=== PATIENT | female | born 1985 | race Caucasian/White ===

== ENCOUNTER 2022-07-30 08:05 | Observation (INO) ==
[2022-07-31] MEDS ORDERED: ONDANSETRON INJ 2 MG/ML 2 ML VIAL IV PRN (11:29)
[2022-07-31] MEDS ORDERED: ACETAMINOPHEN 325 MG TAB PO PRN (11:29)
[2022-07-31] MEDS ORDERED: Patient's HEIGHT &/or WEIGHT Needed SCH (11:45)
[2022-07-31] MEDS ORDERED: PIPERACILLIN/TAZOBACTAM 3.375 GM in DEXTROSE 5% 100 ML IV ONE (12:00)
--- NOTE | 2022-07-31 12:16 | Surgery Consultation ---
This case was discussed with the surgical PA Date of Consultation July 31, 2022 Assessment & Plan (1) Acute cholecystitis: This is a 36y F with PMH of IV drug abuse, methadone user (last usage 1 wk ago), who presented to [facility] today with complaints of constipation over the last several weeks. This is associated with some mild nausea over the last few days. Apparently she had a CT a/p that revealed evidence of acute cholecystitis with mild intrahepatic duct dilation. She also had findings of elevated LFTs with Tb 3.3. WBC 10. She was subsequently transferred here for further evaluation and GI workup. Lab work is currently being drawn at the bedside and radiology working on uploading CT scan imaging in our system. On exam patient's abdomen is soft, but tender in the epigastric/ruq regions. Will await blood work here in addition to GI's recommendations regarding further imaging vs taking the patient for an ERCP. Keep NPO with IVF for now. We will follow closely for possible surgical planning in the near future pending ongoing workup and GI recs. History of Present Illness Attending Physician: Cam Alberts MD History of Present Illness This is a 36y F with PMH of IV drug abuse, methadone user (last usage 1 wk ago), who presented to [facility] today with complaints of constipation. Patient cannot recall her last bowel movement. She has tried laxatives without relief. She also endorses some mild nausea over the last few days. Apparently she had a CT a/p that revealed evidence of acute cholecystitis with mild intrahepatic duct dilation. She also had findings of elevated LFTs with Tb 3.3. WBC 10. She denies any fevers/chills, CP/SOB, abdominal pain at rest, alcohol history, no prior abdominal surgeries. She does not endorse issues with eating, in particular no issues with fatty/greasy foods. Allergies Allergy/AdvReac Type Severity Reaction Status Date / Time ibuprofen Allergy Mild Rash Verified 07/31/22 11:38 Patient History Social History Smoking Status: Current every day smoker Hx Alcohol Use: No Hx Substance Use: Yes Last Used Substance: Days (ago) Last Used Substance Other:: 07/24/22 Preferred Language: Malay Scratch Brusher Required: No Beliefs That Will Affect Care: None Current Living Situation: Parent Other Information That Helps Us Care for You: No Feels Safe at Home: Yes Safety Concerns: Feels Safe At This Time Assistive Devices: Denture - Upper Assistive Devices Comment: doesnt have dentures with her Review of Systems Constitutional: no fever and no chills Respiratory: no dyspnea Cardiovascular: no chest pain Gastrointestinal: + abdominal pain (upon palpation, but not at rest) and + nausea; no bloating and no vomiting Genitourinary: dark colored urine Physical Exam Physical Exam: awake/alert, no distress Constitutional: no acute distress Respiratory: normal respiratory effort Cardiovascular: Rate/Rhythm: regular rate Gastrointestinal (Abdomen): Inspection/Auscultation: abdomen not distended Percussion/Palpation: + abdomen tender (ttp in the epigastric/RUQ region) and abdomen soft Results & Data Vital Signs (Past 12 Hours) Vital Signs Temp Pulse Resp BP Pulse Ox O2 Del Method 07/31/22 11:25 36.7 C 78 16 94/63 L 99 Room Air PG Care Time/CCT Total # of Minutes Spent Total Time Spent with Patient: Total time spent is greater than 50% in coordination of care (as documented) at patient's floor/unit and/or counseling patient: Coding Level of Care Code 99393 IN/OBS CONSULT LVL 3,45M Diagnoses Acute cholecystitis K81.0
[2022-07-31 12:27] LABS: Hematocrit (blood only) 38.3 % (37.0-47.0); Hemoglobin 13.1 g/dl (12.0-16.0); Mean Corpuscular Hgb Conc 34.2 g/dL (32.0-36.0); Mean Corpuscular Volume 84.9 fL (80.0-100.0); Mean Platelet Volume 11.1 fL (9.4-12.4); Platelet Count 108 K/uL (130-400); RDW Coefficient of Variation 12.8 % (11.5-14.5); RDW Standard Deviation 39.3 fL (36.4-46.3); Red Blood Count 4.51 M/uL (4.20-5.40); White Blood Count 7.97 K/ul (4.8-10.8)
--- NOTE | 2022-07-31 12:30 | History & Physical Report ---
Date of Service July 31, 2022 Assessment & Plan (1) Acute cholecystitis: (2) Transaminitis: Plan: Admit to med/surg Patient transferred from [facility] for evaluation of transaminitis and CT ABD/pelvis showing acute cholecystitis and ductal dilation. Afebrile, WBC 7.9K. Repeat LFTs pending. Received ceftriaxone and Flagyl at [facility], will start IV Zosyn Follow blood cultures Acute hepatitis and HIV panels sent at [facility] IVF, pain and nausea control General surgery consult, case discussed with Anne-Marie Vargas PA-C GI consult, case discussed with LAINE Rader (3) IV drug user: Plan: Patient reports using IV methamphetamine over the past 18 months, last use 1 week ago Noted UDS from [facility] also positive for marijuana Patient denies alcohol use (4) Seizure disorder: Plan: Not on meds per patient, however prior fill history shows that patient most recently was on Keppra 500 mg twice daily (5) Bipolar disorder: Plan: Not on meds per patient, however prior fill history shows that patient most recently was on -- prazosin 3 mg HS, naltrexone 25mg daily, lithium 300 mg BID, aripiprazole 20 mg daily DVT PROPHYLAXIS SCDs I spent a total of 75 minutes coordinating, documenting, and providing care for this patient excluding time spent in the performance of separately billed services. This included personally reviewing all current laboratories and imaging studies, medication reconciliation, outpatient chart review, and discussion with specialists. Admission and Anticipated Discharge Date Admission Date: July 31, 2022 History of Present Illness Chief Complaint: Consitpation Primary Care Provider: NO PCP 36 year old female with PMH bipolar disorder, seizure disorder, migraines, hx partial thyroidectomy, and does not take any medications, IV drug abuse using meth one week ago, and other problems listed below who presents as a transfer from [facility]. History obtained from the patient by Dr. East and my personal review of records from [facility] ED. Patient presented there yesterday with complaints of constipation for the past several weeks and some nausea over the past few days. Work up there showed transaminitis and CT abd/pelvis with acute cholecystitis and CBD dilation. Patient was transferred to [facility] for GI and general surgery evaluations. Patient was seen in room 306. She reports being hungry. Has abdominal pain only with palpation. Denies chest pain and shortness of breath. No lightheadedness or dizziness. Denies fevers and chills. No urinary symptoms. Review of labs from [facility] show K+ 3.0, WBC 8K, total bili 3.3, AST 1883, ALT 2938, alk phos 600. Allergies Allergy/AdvReac Type Severity Reaction Status Date / Time ibuprofen Allergy Mild Rash Verified 07/31/22 11:38 Home Medications Medication Instructions Recorded Confirmed Type No Known Home Medications 07/31/22 07/31/22 History Past Med/Surg History Medical History Bipolar disorder IV drug user Migraines Seizure disorder not on meds Surgical History History of partial thyroidectomy not on replacement therapy Family History Other Adopted Social History Smoking Status: Current every day smoker Hx Alcohol Use: No Hx Substance Use: Yes Last Used Substance: Days (ago) Last Used Substance Other:: 07/24/22 Preferred Language: Hungarian Drilling Manager Required: No Beliefs That Will Affect Care: None Current Living Situation: Parent Other Information That Helps Us Care for You: No Feels Safe at Home: Yes Safety Concerns: Feels Safe At This Time Assistive Devices: Denture - Upper Assistive Devices Comment: doesnt have dentures with her Review of Systems Review of Systems: ROS per HPI, all other systems reviewed and negative Physical Exam Physical Exam: please refer to Dr. East's addendum for physical exam Results & Data Results & Data Vital Signs (Past 12 Hours) Vital Signs Temp Pulse Resp BP Pulse Ox O2 Del Method 07/31/22 11:25 36.7 C 78 16 94/63 L 99 Room Air Laboratory Results Short CBC 07/31/22 Range/Units 12:01 WBC 7.97 (4.8-10.8) K/ul Hgb 13.1 (12.0-16.0) g/dl Hct 38.3 (37.0-47.0) % Plt Count 108 L (130-400) K/uL BMP 07/31/22 12:01 Sodium 138 Potassium 3.5 Chloride 109 H Carbon Dioxide 24 BUN 8 Creatinine 0.62 Glucose 76 Calcium 7.7 L Liver Function 07/31/22 Range/Units 12:01 Total Bilirubin 3.3 H (0.2-1.0) mg/dl Alkaline Phosphatase 459 H (34-104) U/L Albumin 3.2 L (3.4-5.0) gm/dl Code Status & VTE Plan VTE Prophylaxis Plan VTE Prophylaxis will be ordered: Yes Supervising Physician Co-Signing Physician Notes Patient is a 36-year-old female with history of bipolar disorder, schizophrenia, migraine, IV drug abuse, insomnia and other medical problems presents from [facility] for evaluation of abdominal pain thought to be secondary to acute cholecystitis, constipation. Patient states having generalized abdominal pain, radiating to back, associated with constipation over the past few days. CT abdomen done at [facility] suggestive of acute cholecystitis. She reports nausea but no vomiting. Denies any chest pain, dyspnea, fever, chills, dizziness. LFTs were elevated on review of blood work from [facility]. Please review HPI for complete details of presentation. Currently patient not taking any medications. Blood work suggestive of thrombocytopenia of 108K, chloride 109, magnesium 1.6, total bilirubin 2.3, AST 1273, ALT 2093, alkaline phosphatase 459, corrected calcium for albumin within normal limits, normal lipase and lactate levels. COVID screen is negative. MRCP, blood cultures currently pending. EKG showed normal sinus rhythm, nonspecific ST-T wave changes, QTc 442. Physical Exam: Vitals signs as noted above General Appearance:Moderately built and nourished, no apparent distress Head: normocephalic, Atraumatic Eyes: normal inspection, EOMI Neck: supple, Trachea midline Respiratory/Chest: Normal breath sounds, CTA, No accessory muscle use Cardiovascular: S1, S2, No murmur Abdomen/GI:Soft, generalized abdominal tenderness, voluntary guarding, decreased Bowel sounds Extremities/Musculoskeletal:normal inspection, no edema Neurologic/Psych:AAOX3, grossly no focal neurological deficits Skin: normal color, warm Acute cholecystitis No signs of sepsis Rule out cholangitis MRCP pending Avoid hepatotoxic agents as able Obtain records from [facility] for hepatitis, HIV panel as able Agree with IV fluids, pain control, IV Zosyn, bowel rest GI and surgery consulted Further management based on MRCP results. Constipation Bowel regimen as able I personally reviewed the record. Patient is interviewed and examined at bedside. Patient's care is coordinated with Steph Rome NAVAL INSPECTOR. Please refer to the documentation above for details of patient's presentation and for discussion of other issues.
[2022-07-31 12:37] LABS: BUN Creatinine Ratio 12.9 (10-20); Calcium 7.7 mg/dl (8.5-10.1); Creatinine Clr Calc Pharmacy 127.1 ml/min; Est GFR (African American) 135.4 ml/min; Est GFR (Non-African American) 116.8 ml/min; Potassium 3.5 mmol/L (3.5-5.1)
[2022-07-31 12:38] LABS: Albumin Globulin Ratio 1.3 (0.9-2); Albumin Level 3.2 gm/dl (3.4-5.0); Bilirubin,Total 3.3 mg/dl (0.2-1.0); Globulin 2.4 gm/dl (2.5-4.0); Magnesium 1.6 mg/dl (1.7-2.4); Total Protein 5.6 gm/dl (6.0-8.3)
[2022-07-31] MEDS ORDERED: MAGNESIUM SULFATE / D5W 1 GM/100 ML BAG IV ONE (12:47)
[2022-07-31] MEDS ORDERED: bisacodyL 10 MG SUPP PR PRN (12:50)
[2022-07-31] MEDS ORDERED: NSS + 20MEQ KCL 20 MEQ/1,000 ML BAG IV SCH (13:00)
[2022-07-31] MEDS ORDERED: MoRPHine SULFATE 4 MG/ML 1 ML CARP\\VIAL IV PRN (13:04)
[2022-07-31 13:07] LABS: Basophils # (auto) 0.05 K/uL (0-0.2); Basophils % (auto) 0.6 %; Eosinophils # (auto) 0.03 K/uL (0-0.50); Eosinophils % (auto) 0.4 %; Immature Granulocytes # (auto) 0.02 K/uL (0.01-0.20); Immature Granulocytes % (auto) 0.3 %; Lymphocytes # (auto) 5.61 K/uL (1.2-3.4); Lymphocytes % (auto) 70.4 %; Monocytes # (auto) 0.28 K/uL (0.11-0.59); Monocytes % (auto) 3.5 %; Neutrophils # (auto) 1.98 K/uL (1.40-6.50); Neutrophils % (auto) 24.8 %
--- NOTE | 2022-07-31 13:57 | Gastrointestinal Consultation ---
Date of Consultation July 31, 2022 Assessment & Plan (1) Transaminitis: Very high transaminases - but improved here compared to labs sent w her from [facility] Suspect drug related or viral. cholecystitis and choledocholithiasis do not typically cause elevated transaminases >1000. It is reassuring that the trans aminases are improved and INR was reported as normal at 1.1. (2) Acute cholecystitis: According to report that I received from the admitting DIRECTOR OF MEDICAL EDUCATION, US and CT w acute cholecystitis and bile duct dilation. I haven't seen these images or the reports as of yet. Plan 1. Will review MRCP results when available. If evidence of choledocholithiasis, will plan to go forward w ERCP. 2. Viral serologies, drug tox, repeat INR ordered. 3. If MRCP (-) may have a regular diet. 4. Will continue to follow closely. History of Present Illness Reason for Consultation: transaminitis, dilated CBD Requesting Physician: Steph Rome NP Attending Physician: Cam Alberts MD History of Present Illness Ms. Naomi Canales is a 36 yr old female pt w/o a PCP, but w a hx of bipolar and seizures who presented to [facility] yesterday for diffuse RUQ. She says this pain was new yesterday, though she has had nausea intermittently for a month or so. Because CT there w dilated bile duct, labs w T Bili 3 and transaminases > 1000 and she was transferred here with report of having a bile duct stone. She admits to abusing IV meth and denies any other substance abuse and also denies any tylenol use or OTC supplements. She also denies any alcohol intake. She has had chills x one day, no measured fevers, no yellow eyes or skin. LFTs: at [facility] [place]. on arrival here T Bili 3.3 3.3 AST 1200 1200 ALT 2938 2093 Alk Phos 600 459 INR there 1.1. She is seen/examined while she is in a wheelchair, on her way to and in the waiting room of the MRI. She is awake, alert, oriented, hemodynamically stable, is calm, cooperative and provides good eye contact though has a somewhat flat affect. She c/o hunger and asks to eat. Allergies Allergy/AdvReac Type Severity Reaction Status Date / Time ibuprofen Allergy Mild Rash Verified 07/31/22 11:38 Home Medications Medication Instructions Recorded Confirmed Type No Known Home Medications 07/31/22 07/31/22 History Patient History Medical History Bipolar disorder IV drug user Migraines Seizure disorder not on meds Surgical History History of partial thyroidectomy not on replacement therapy Family History Other Adopted Social History Smoking Status: Current every day smoker Hx Alcohol Use: No Hx Substance Use: Yes Last Used Substance: Days (ago) Last Used Substance Other:: 07/24/22 Preferred Language: Malawian Blood Bank Order Control Clerk Required: No Beliefs That Will Affect Care: None Current Living Situation: Parent Other Information That Helps Us Care for You: No Feels Safe at Home: Yes Safety Concerns: Feels Safe At This Time Assistive Devices: Denture - Upper Assistive Devices Comment: doesnt have dentures with her Review of Systems Review of Systems: ROS: Gen: Denies weakness, fevers, weight loss Eyes: No eye redness, or pain, no recent vision changes Resp: No SOB, no cough Cardio: No palpitations/irregular beats, no chest pain GI: As per HPI, otherwise (-). : Denies pain on urination Skin: No jaundice, itching or new rashes A total of 12 systems were reviewed, all others (-). Physical Exam Constitutional: WD/WN, vitals as above Eyes: PERRL, conjunctivae normal, anicteric sclerae ENMT: external ear and nose normal, oropharynx normal Neck: trachea midline, no thyromegaly Respiratory: Few coarse crackles in each base, otherwise negative. No wheezes. No evidence or respiratory effort. Cardiovascular: RRR, no murmur, no edema Gastrointestinal (Abdomen): Inspection/Auscultation: abdomen normal to inspection and + hypoactive bowel sounds; abdomen not distended Percussion/Palpation: + abdomen tender (RUQ) and abdomen soft Musculoskeletal: no cyanosis or clubbing, extremities motor strength 5/5 Skin: mult tatoos, no rash or lesions Neurologic: PERRL, EOMI, accommodation nl, no face palsy, no dysarthria Psychiatric: Orientation: oriented x 3 Affect: + flat affect Lymphatic: no cervical or axillary lymphadenopathy Results & Data Vital Signs (Past 12 Hours) Vital Signs Temp Pulse Resp BP Pulse Ox O2 Del Method 07/31/22 11:25 36.7 C 78 16 94/63 L 99 Room Air Laboratory Results LFTs: see HPI Lipase normal at 34, Mg low at 1.6, Alk low at 3.2 WBC 7, Hb 13, Hct 38, Plts 108, Na 138, Cl109, CO2 24, BUN 8, Cr 0.62, glucose [address] films from [facility] are being pushed into [place]. MRCP pending
--- NOTE | 2022-07-31 14:46 | Magnetic Resonance Report ---
MR MRCP HISTORY: Dilated common bile duct. Follow-up. TECHNIQUE: MRCP of the abdomen was performed without contrast according to standard departmental prot ocol. COMPARISON STUDY: None. FINDINGS: Mild motion artifact. There are trace bilateral pleural effusions. The heart is normal in s ize. The spleen is mildly enlarged measuring 13 cm in length. Normal kidneys. No hydronephrosis. No r etroperitoneal lymphadenopathy. Normal caliber abdominal aorta. The visualized osseous structures dem onstrate a normal signal intensity. Trace ascites. There is severe diffuse thickening/edema within th e the gallbladder wall which measures up to 14 mm. There is also edema which partially surrounds the second portion of the duodenum, pancreatic head, and extends into the right paracolic gutter. The bradshaw creas demonstrates a normal signal intensity. The common bile duct and main pancreatic duct are joni l in course and caliber. No filling defects within the common bile duct to suggest a stone. No gallst ones identified. The common bile duct measures 3 mm in diameter. No intrahepatic bile duct dilatation . There is also periportal edema seen within the liver. There is a 1 cm T2 hyperintense lesion within segment 5 of the liver. This is indeterminate on this noncontrast study but favors a hemangioma. IMPRESSION: 1. Severe gallbladder wall thickening/edema. There are no gallstones identified. There is also peripo rtal edema, trace ascites, trace pleural effusions, and edema/fluid within the right paracolic gutter . These findings are nonspecific but are likely due to underlying hepatic pathology such as a hepatit is rather than a cholecystitis. Recommend correlation with LFTs. 2. Normal caliber common bile duct. No filling defects within the common bile duct to suggest a stone . 3. Mild splenomegaly. 4. An indeterminate 1 cm T2 hyperintense lesion within the right hepatic lobe. This favors a hemangio ma. ACT 112: Negative or not required by law. Electronically signed by: Woody Meehan M.D. 07/31/2022 2:44 PM
[2022-07-31 15:37] LABS: INR 1.2 (0.9-1.1); Prothrombin Time 12.4 Seconds (9.0-12.0)
[2022-07-31 16:49] LABS: Amphetamines+Metham, Urine Pos (Neg); Barbiturates, Urine Neg (Neg); Benzodiazepine, Urine Neg (Neg); Cocaine, Urine Neg (Neg); MDMA (Ecstacy), Urine Pos (Neg); Methadone, Urine Neg (Neg); Opiate, Urine Pos (Neg); Phencyclidine, Urine Neg (Neg)
[2022-07-31] MEDS ORDERED: PIPERACILLIN/TAZOBACTAM 3.375 GM in DEXTROSE 5% 100 ML IV SCH (18:00)
--- NOTE | 2022-07-31 19:20 | Discharge Summary ---
Date of Service July 31, 2022 Admission HPI Per Admitting Provider 36 year old female with PMH bipolar disorder, seizure disorder, migraines, hx partial thyroidectomy, and does not take any medications, IV drug abuse using meth one week ago, and other problems listed below who presents as a transfer from [facility]. History obtained from the patient by Dr. East and my personal review of records from [facility] ED. Patient presented there yesterday with complaints of constipation for the past several weeks and some nausea over the past few days. Work up there showed transaminitis and CT abd/pelvis with acute cholecystitis and CBD dilation. Patient was transferred to [facility] for GI and general surgery evaluations. Patient was seen in room 306. She reports being hungry. Has abdominal pain only with palpation. Denies chest pain and shortness of breath. No lightheadedness or dizziness. Denies fevers and chills. No urinary symptoms. Review of labs from [facility] show K+ 3.0, WBC 8K, total bili 3.3, AST 1883, ALT 2938, alk phos 600. Admission Exam Per Admitting Provider General Appearance:Moderately built and nourished, no apparent distress Head: normocephalic, Atraumatic Eyes: normal inspection, EOMI Neck: supple, Trachea midline Respiratory/Chest: Normal breath sounds, CTA, No accessory muscle use Cardiovascular: S1, S2, No murmur Abdomen/GI:Soft, generalized abdominal tenderness, voluntary guarding, decreased Bowel sounds Extremities/Musculoskeletal:normal inspection, no edema Neurologic/Psych:AAOX3, grossly no focal neurological deficits Skin: normal color, warm Principal Diagnosis Transaminitis Possible acute cholecystitis Discharge Exam Patient left AMA, unable to perform discharge exam Discharge Data Allergies Allergy/AdvReac Type Severity Reaction Status Date / Time ibuprofen Allergy Mild Rash Verified 07/31/22 11:38 Consultations Consult Gastroenterology Routine Consult General Surgery Routine Ordered Studies Cholangiopancreatography MRI 07/31/22 11:30 MR MRCP HISTORY: Dilated common bile duct. Follow-up. TECHNIQUE: MRCP of the abdomen was performed without contrast according to standard departmental protocol. COMPARISON STUDY: None. FINDINGS: Mild motion artifact. There are trace bilateral pleural effusions. The heart is normal in size. The spleen is mildly enlarged measuring 13 cm in length. Normal kidneys. No hydronephrosis. No retroperitoneal lymphadenopathy. Normal caliber abdominal aorta. The visualized osseous structures demonstrate a normal signal intensity. Trace ascites. There is severe diffuse thickening/edema within the the gallbladder wall which measures up to 14 mm. There is also edema which partially surrounds the second portion of the duodenum, pancreatic head, and extends into the right paracolic gutter. The pancreas demonstrates a normal signal intensity. The common bile duct and main pancreatic duct are normal in course and caliber. No filling defects within the common bile duct to suggest a stone. No gallstones identified. The common bile duct measures 3 mm in diameter. No intrahepatic bile duct dilatation. There is also periportal edema seen within the liver. There is a 1 cm T2 hyperintense lesion within segment 5 of the liver. This is indeterminate on this noncontrast study but favors a hemangioma. IMPRESSION: 1. Severe gallbladder wall thickening/edema. There are no gallstones identified. There is also periportal edema, trace ascites, trace pleural effusions, and edema/fluid within the right paracolic gutter. These findings are nonspecific but are likely due to underlying hepatic pathology such as a hepatitis rather than a cholecystitis. Recommend correlation with LFTs. 2. Normal caliber common bile duct. No filling defects within the common bile duct to suggest a stone. 3. Mild splenomegaly. 4. An indeterminate 1 cm T2 hyperintense lesion within the right hepatic lobe. This favors a hemangioma. ACT 112: Negative or not required by law. Electronically signed by: Woody Meehan M.D. 07/31/2022 2:44 PM Hospital Course (1) Acute cholecystitis: (2) Transaminitis: (3) IV drug user: (4) Seizure disorder: (5) Bipolar disorder: 36 year old female with PMH bipolar disorder, seizure disorder, migraines, hx partial thyroidectomy, and does not take any medications, IV drug abuse using meth one week ago, and other problems listed below who presents as a transfer from [facility] for management and evaluation of transaminitis and possible acute cholecystitis. Patient presented there with a chief complaint of constipation for the past 3 to 4 weeks. Work-up at [facility] showed T. bili 3.3, AST 1883, ALT 2938, alk phos 600. CT ABD/pelvis suggested acute cholecystitis and ductal dilation. Labs upon arrival to [facility] showed WBC 7.9K, platelet 108K, INR 1.2, total bili 3.3, AST 1273, ALT 2093, alk phos 459. Patient had an MRCP that showed severe gallbladder wall thickening/edema. There are no gallstones identified. There is also periportal edema, trace ascites, trace pleural effusions, and edema/fluid within the right paracolic gutter. These findings are nonspecific but are likely due to underlying hepatic pathology such as a hepatitis rather than a cholecystitis. Recommend correlation with LFTs. Normal caliber common bile duct. No filling defects within the common bile duct to suggest a stone. Mild splenomegaly. An indeterminate 1 cm T2 hyperintense lesion within the right hepatic lobe. This favors a hemangioma. Patient was evaluated by GI and had viral serologies ordered which are pending at the time of discharge. Patient was also evaluated by general surgery who is recommending HIDA scan for follow-up of possible acute cholecystitis. Due to n.p.o. status, patient became frustrated and decided to sign out AGAINST MEDICAL ADVICE. Risks of signing out AMA were explained to the patient including worsening infection, worsening liver failure, and possible . Patient states she accepts these risks. IV access was removed by nursing and patient was advised to return to the ED for any worsening symptoms. Total Time Total Time Spent Total Time Spent (In Minutes): 20 Discharge Plan Discharge Items Patient Disposition: Against Medical Advice Reason For Visit: CONSTIPATION 3 WKS Activity: Resume your previous activity Non-emergency contact: Primary Care Provider Follow-up/Referrals: PCP,NO [Primary Care Provider] - Pending Studies at Discharge: Yes Stand-Alone Forms: [facility], Smoking Cessation Medications and DC Order Prescriptions: No Action No Known Home Medications Discharge Orders: Left Against Medical Advice (Routine); Ordered 07/31/22 Ordered By: Steph Rome Admission Data Admit Date/Time: 07/31/22 11:18 Attending Provider: Cam Alberts Admit Provider: Cam Alberts Primary Care Provider: PCP,NO Other Providers: Helene Bernard ; Elkin Constantino
[2022-07-31] MEDS ORDERED: POLYETHYLENE (MIRALAX) 17 GM PACK PO ONE (20:00)
[2022-07-31] MEDS ORDERED: DOCUSATE SODIUM 100 MG CAP PO SCH (21:00)
[2022-08-01] MEDS ORDERED: POLYETHYLENE (MIRALAX) 17 GM PACK PO SCH (09:00)
--- NOTE | 2022-08-02 00:37 | Electrocardiogram Report ---
Test Reason : Blood Pressure : / mmHG Vent. Rate : 075 BPM Atrial Rate : 075 BPM P-R Int : 140 ms QRS Dur : 084 ms QT Int : 396 ms P-R-T Axes : 005 046 015 degrees QTc Int : 442 ms Normal sinus rhythm Normal ECG No previous ECGs available Confirmed by Beto Akers ([id number]) on 08/02/2022 12:37:07 AM Referred By: Cam Alberts Confirmed By:Beto Akers
[2022-08-04 15:23] LABS: EBV Nuclear Ag Antibody >600.00 U/mL
[2022-08-06 16:32] LABS: Amphetamine Urine, Confirm 3878 ng/mL (<250); Codeine Urine NEGATIVE ng/mL (<50); Hydrocodone Urine NEGATIVE ng/mL (<50); Hydromor Urine NEGATIVE ng/mL (<50); MDA negative; MDEA negative; MDMA (Ecstasy) Urine, Confirm negative; Marijuana Quant, GCMS Urine 39 ng/mL (<5); Methamphetamine, Ur Confirm 11448 ng/mL (<250); Morphine Urine 3380 ng/mL (<50); Norhydrocodone Conf Ur NEGATIVE ng/mL (<50); Noroxycodone Urine NEGATIVE ng/mL (<50); Oxycodone Urine NEGATIVE ng/mL (<50); Oxymorph Urine NEGATIVE ng/mL (<50)
== END 2022-07-31 18:53 | disposition left against medical advice (07) ==
LOC: 3E 07-31 11:18 → INTOOBSV 07-31 11:18